=== PATIENT | female | born 1985 | race Caucasian/White ===

== ENCOUNTER 2017-04-25 23:52 | Emergency (ER) | payer OTHER ==
[~2017-04-25] VITALS: Ht 162.6 cm; Wt 104.3 kg
[2017-04-26 00:01] VITALS: BP 134/89
[2017-04-26] MEDS ORDERED: CYCLOBENZAPRINE HCL 10 MG TAB PO ONE (02:15)
[2017-04-26] MEDS ORDERED: ACETAMINOPHEN 500 MG TAB PO ONE (02:15)
== END 2017-04-26 02:42 | disposition home or self-care (01) ==
LOC: ER 23:52
DX: S13.4XXA Sprain of ligaments of cervical spine, initial encounter (principal); R51 Headache; M25.562 Pain in left knee; R07.89 Other chest pain; M25.512 Pain in left shoulder; V43.52XA Car driver injured in collision with other type car in traffic accident, initial encounter; Y93.89 Activity, other specified; Y99.8 Other external cause status; Y92.488 Other paved roadways as the place of occurrence of the external cause
CPT/HCPCS: 70450; 71020; 72125; 81025

== ENCOUNTER → 2017-08-03 | Outpatient (CLI) | payer OTHER | END | disposition home or self-care (01) | LOC: LAB 13:33 | PROVIDERS: ATTEND Internal Medicine Gastroenterology | DX: R19.7 Diarrhea, unspecified (principal); R10.30 Lower abdominal pain, unspecified | CPT/HCPCS: 82705; 82784; 83516; 86255; 87045; 87493; 87899 ==

== ENCOUNTER 2017-09-03 07:44 | Day surgery (SDC) | payer OTHER ==
[2017-08-30 11:14] LABS: Basophils # (auto) 0.1 uL; Basophils % (auto) 0.8 % (0.0-2.0); Eosinophils # (auto) 0.3 uL; Eosinophils % (auto) 2.4 % (0.0-7.0); Hematocrit 44.9 % (36.0-46.0); Hemoglobin 15.4 g/dL (12.2-16.2); Lymphocytes # (auto) 2.5 uL; Lymphocytes % (auto) 21.3 % (10.0-50.0); Mean Corpuscular Hemoglobin 29.8 pg (28.0-32.0); Mean Corpuscular Hgb Conc. 34.2 g/dL (32.0-36.0); Mean Corpuscular Volume 86.9 fL (80.0-100.0); Mean Platelet Volume 7.9 fL (6.9-10.8); Monocytes # (auto) 0.4 uL; Monocytes % (auto) 3.2 % (0.0-12.0); Neutrophils # (auto) 8.5 uL; Neutrophils % (auto) 72.3 % (37.0-80.0); Platelet Count (auto) 305 10^3/uL (140-450); White Blood Cell 11.7 10^3/uL (4.4-10.8)
[2017-08-30 11:19] LABS: Urine Bilirubin Negative (Negative); Urine Blood Negative /uL (Negative); Urine Color Yellow (Yellow); Urine Glucose Normal (Normal); Urine Ketone Negative (Negative); Urine Mucus FEW (None Seen); Urine Nitrite Negative (Negative); Urine RBC <1 /hpf (0 - 4); Urine Squamous Epithelial Cell MOD /hpf (<5); Urine Urobilinogen Normal (Negative); Urine pH 5.5 (5.0-8.0)
[2017-08-30 11:35] LABS: Albumin 3.6 g/dL (3.4-5.0); Bilirubin, Total 0.3 mg/dL (0.2-1.0); Calcium 8.8 mg/dL (8.5-10.1); Potassium 4.1 mmol/L (3.5-5.1); Total Protein 8.3 g/dL (6.4-8.2)
[2017-08-30 11:42] LABS: Partial Thromboplastin Time 32.6 sec (22.64-33.71); Prothrombin Time 10.9 sec (9.37-12.3)
[~2017-09-03] VITALS: Ht 162.6 cm; Wt 106.6 kg
[2017-09-03] MEDS ORDERED: ONDANSETRON HCL 4 MG/2 ML VIAL IV ONE (08:45)
[2017-09-03] MEDS ORDERED: ePHEDrine SULFATE 50 MG/ML AMP IV PRN (08:45)
[2017-09-03] MEDS ORDERED: LABETALOL HCL 5 MG/ML 4ML SYRINGE IV PRN (08:45)
[2017-09-03] MEDS ORDERED: KETOROLAC TROMETH 30 MG/ML 1ML VIAL IV ONE (08:45)
[2017-09-03] MEDS ORDERED: MORPHINE SULF INJ 2 MG/ML SYRINGE 1ML IV PRN (08:45)
[2017-09-03] MEDS ORDERED: HYDROmorphone HCL 2 MG/ML VL IV PRN (08:45)
[2017-09-03] MEDS ORDERED: MIDAZOLAM HCL 1MG/1ML-2 ML VIAL ONE (08:46)
[2017-09-03] MEDS ORDERED: MEPERIDINE HCL (50 MG/ML) 1 ML VIAL ONE (08:46)
[2017-09-03] MEDS ORDERED: fentaNYL CITRATE 100 MCG/2 ML VL ONE (08:46)
[2017-09-03] MEDS ORDERED: DEXAMETHASONE SOD PHOS 10MG/1ML VIAL INJ ONE (08:47)
[2017-09-03] MEDS ORDERED: PROPOFOL 10 MG/ML 20 ML IV ONE (09:04)
[2017-09-03 09:55] VITALS: BP 129/76
== END 2017-09-03 10:00 | disposition home or self-care (01) ==
LOC: GI 07:44
PROVIDERS: ATTEND Internal Medicine Gastroenterology
DX: K64.8 Other hemorrhoids (principal); K31.89 Other diseases of stomach and duodenum; E66.9 Obesity, unspecified; Z90.49 Acquired absence of other specified parts of digestive tract; K21.9 Gastro-esophageal reflux disease without esophagitis; I10 Essential (primary) hypertension; D69.6 Thrombocytopenia, unspecified
CPT/HCPCS: 36415; 43239; 45380; 80053; 81001; 84702; 85025; 85610; 85730; J1100; J2175; J2250; J2704; J3010; J7030; 99152; 99153